=== PATIENT | female | born 1990 | race Caucasian/White ===

== ENCOUNTER → 2018-03-16 | Outpatient (CLI) | payer BC, OTHER | END | disposition home or self-care (01) | LOC: C.CPL 13:28 | PROVIDERS: ATTEND Obstetrics & Gynecology Maternal & Fetal Medicine | DX: Z36.0 Encounter for antenatal screening for chromosomal anomalies (principal); Z36.3 Encounter for antenatal screening for malformations; O28.3 Abnormal ultrasonic finding on antenatal screening of mother; O35.1XX1 Maternal care for (suspected) chromosomal abnormality in fetus, fetus 1; O99.340 Other mental disorders complicating pregnancy, unspecified trimester; O99.210 Obesity complicating pregnancy, unspecified trimester; Z3A.22 22 weeks gestation of pregnancy; F41.8 Other specified anxiety disorders; Z68.37 Body mass index [BMI] 37.0-37.9, adult; F41.0 Panic disorder [episodic paroxysmal anxiety] ==